=== PATIENT | male | born 1940 | race Caucasian/White ===

== ENCOUNTER → 2023-08-22 15:42 | Outpatient (REF) | payer MEDICARE, OTHER, SELFPAY | LOC: CLAB 15:42 | PROVIDERS: ATTENDING PHYSICIAN Specialist | DX: N39.0 Urinary tract infection, site not specified (principal) | CPT/HCPCS: 87086 ==

== ENCOUNTER 2023-09-19 15:05 | Outpatient (RCR) | payer MEDICARE, OTHER, SELFPAY | END 2023-09-19 23:59 | disposition home or self-care (01) | LOC: RPT 15:05 | PROVIDERS: ATTENDING PHYSICIAN Student in an Organized Health Care Education/Training Program; FAMILY PHYSICIAN Internal Medicine Cardiovascular Disease | DX: M54.51 Vertebrogenic low back pain (principal); Z73.6 Limitation of activities due to disability; R26.2 Difficulty in walking, not elsewhere classified | CPT/HCPCS: 97010; 97110; 97112; 97162 ==

== ENCOUNTER 2023-10-16 14:25 | Outpatient (RCR) | payer MEDICARE, OTHER, SELFPAY | END 2023-10-16 23:59 | disposition home or self-care (01) | LOC: RPT 14:25 | PROVIDERS: ATTENDING PHYSICIAN Student in an Organized Health Care Education/Training Program; FAMILY PHYSICIAN Internal Medicine Cardiovascular Disease | DX: M54.51 Vertebrogenic low back pain (principal); Z73.6 Limitation of activities due to disability | CPT/HCPCS: 97010; 97110; 97112 ==

== ENCOUNTER → 2023-11-04 10:26 | Outpatient (REF) | payer MEDICARE, OTHER, SELFPAY | LOC: HWRAD 10:26 | PROVIDERS: ATTENDING PHYSICIAN Internal Medicine Gastroenterology; FAMILY PHYSICIAN Internal Medicine Cardiovascular Disease | DX: K76.0 Fatty (change of) liver, not elsewhere classified (principal) | CPT/HCPCS: 76700 ==

== ENCOUNTER 2023-11-19 11:16 | Outpatient (RCR) | payer MEDICARE, OTHER, SELFPAY | END 2023-11-19 23:59 | disposition home or self-care (01) | LOC: RPT 11:16 | PROVIDERS: ATTENDING PHYSICIAN Student in an Organized Health Care Education/Training Program; FAMILY PHYSICIAN Internal Medicine Cardiovascular Disease | DX: M54.51 Vertebrogenic low back pain (principal); Z73.6 Limitation of activities due to disability | CPT/HCPCS: 97110; 97112; 97140 ==

== ENCOUNTER → 2023-11-25 07:59 | Outpatient (REF) | payer MEDICARE, OTHER, SELFPAY | LOC: MRI 3T 07:59 | PROVIDERS: ATTENDING PHYSICIAN Psychiatry & Neurology Neurology; FAMILY PHYSICIAN Internal Medicine Cardiovascular Disease | DX: R41.89 Other symptoms and signs involving cognitive functions and awareness (principal) | CPT/HCPCS: 70551 ==

== ENCOUNTER 2023-12-05 10:01 | Outpatient (RCR) | payer MEDICARE, OTHER, SELFPAY | END 2023-12-08 07:31 | disposition home or self-care (01) | LOC: RPT 10:01 | PROVIDERS: ATTENDING PHYSICIAN Student in an Organized Health Care Education/Training Program; FAMILY PHYSICIAN Internal Medicine Cardiovascular Disease | DX: M54.51 Vertebrogenic low back pain (principal); Z73.6 Limitation of activities due to disability | CPT/HCPCS: 97110; 97112 ==

== ENCOUNTER → 2023-12-18 12:11 | Outpatient (REF) | payer MEDICARE, OTHER, SELFPAY ==
[2023-12-18 13:03] LABS: % Basophils 0.5 % (0-2); % Eosinophils 4.6 % (0-6); % Immature Granulocytes 0.7 % (0-0.5); % Lymphocytes 16.2 % (20.5-51.1); % Monocytes 6.5 % (1.7-9.3); % Neutrophils 71.5 % (42.2-75.2); Absolute Eosinophils 0.4 10^3/uL (0-0.7); Absolute Immature Granulocytes 0.1 10^3/uL (0-0.05); Absolute Lymphocytes 1.4 10^3/uL (1.2-3.4); Absolute Monocytes 0.6 10^3/uL (0.1-0.6); Absolute Neutrophils 6.1 10^3/uL (1.4-6.5); Hematocrit 37.7 % (39.0-52.0); Hemoglobin 12.8 g/dL (13.0-18.0); Mean Corpuscular Hgb 29.7 pg (27.0-31.0); Mean Corpuscular Volume 87.5 fL (80.0-94.0); Nucleated Red Blood Cells % 0 % (-); Platelet Count 199 10^3/uL (130-400); Red Blood Cell Count 4.31 10^6/uL (4.70-6.10); Red Cell Dist. Width 13.5 % (11.5-14.5); White Blood Cell Count 8.6 10^3/uL (4.8-10.8)
[2023-12-18 14:02] LABS: Blood Urea Nitrogen 27 mg/dl (9-20); Calcium 9.6 mg/dl (8.4-10.2); Carbon Dioxide 27 mmol/L (22-30); Chloride 103 mmol/L (98-107); Glucose 113 mg/dl (70-99); Potassium 4.9 mmol/L (3.5-5.1); Sodium 143 mmol/L (135-145); eGFR > 60.00
== END ==
LOC: REG 12:11
PROVIDERS: ATTENDING PHYSICIAN Internal Medicine; FAMILY PHYSICIAN Internal Medicine Cardiovascular Disease
DX: I10 Essential (primary) hypertension (principal); Z79.01 Long term (current) use of anticoagulants
CPT/HCPCS: 36415; 80048; 85025

== ENCOUNTER → 2023-12-24 08:03 | Outpatient (REF) | payer MEDICARE, OTHER, SELFPAY | LOC: HWRCS 08:03 | PROVIDERS: ATTENDING PHYSICIAN Internal Medicine; FAMILY PHYSICIAN Internal Medicine Cardiovascular Disease | DX: I48.0 Paroxysmal atrial fibrillation (principal); I10 Essential (primary) hypertension | CPT/HCPCS: 93306 ==

== ENCOUNTER → 2023-12-30 07:25 | Outpatient (REF) | payer MEDICARE, OTHER, SELFPAY | LOC: DHCBC/DCA 07:25 | PROVIDERS: ATTENDING PHYSICIAN Internal Medicine; FAMILY PHYSICIAN Internal Medicine Cardiovascular Disease | DX: I48.0 Paroxysmal atrial fibrillation (principal); I35.1 Nonrheumatic aortic (valve) insufficiency; R55 Syncope and collapse | CPT/HCPCS: 78452; 93017; A9500; J2785 ==

== ENCOUNTER → 2024-04-23 13:58 | Outpatient (REF) | payer MEDICARE, OTHER, SELFPAY | LOC: HWRAD 13:58 | PROVIDERS: ATTENDING PHYSICIAN Internal Medicine Endocrinology, Diabetes & Metabolism; FAMILY PHYSICIAN Internal Medicine Cardiovascular Disease | DX: E04.2 Nontoxic multinodular goiter (principal) | CPT/HCPCS: 76536 ==

== ENCOUNTER → 2024-05-10 07:01 | Outpatient (REF) | payer MEDICARE, OTHER, SELFPAY | LOC: PAVMRI 07:01 | PROVIDERS: ATTENDING PHYSICIAN Psychiatry & Neurology Neurology; FAMILY PHYSICIAN Internal Medicine Cardiovascular Disease | DX: R26.9 Unspecified abnormalities of gait and mobility (principal); M48.02 Spinal stenosis, cervical region | CPT/HCPCS: 72141 ==

== ENCOUNTER → 2024-05-13 07:08 | Outpatient (REF) | payer MEDICARE, OTHER, SELFPAY | LOC: PAVMRI 07:08 | PROVIDERS: ATTENDING PHYSICIAN Internal Medicine Cardiovascular Disease; REFERRING PHYSICIAN Psychiatry & Neurology Neurology | DX: M51.26 Other intervertebral disc displacement, lumbar region (principal); M54.40 Lumbago with sciatica, unspecified side | CPT/HCPCS: 72148 ==

== ENCOUNTER → 2024-05-17 16:02 | Outpatient (REF) | payer MEDICARE, OTHER, SELFPAY | LOC: PAVMRI 16:02 | PROVIDERS: ATTENDING PHYSICIAN Internal Medicine Cardiovascular Disease; REFERRING PHYSICIAN Psychiatry & Neurology Neurology | DX: M17.9 Osteoarthritis of knee, unspecified (principal) | CPT/HCPCS: 73721 ==

== ENCOUNTER → 2024-05-18 13:33 | Outpatient (REF) | payer MEDICARE, OTHER, SELFPAY | LOC: HWRAD 13:33 | PROVIDERS: ATTENDING PHYSICIAN Internal Medicine Cardiovascular Disease | DX: I82.402 Acute embolism and thrombosis of unspecified deep veins of left lower extremity (principal); I82.412 Acute embolism and thrombosis of left femoral vein | CPT/HCPCS: 93971 ==

== ENCOUNTER → 2024-10-12 12:27 | Outpatient (REF) | payer MEDICARE, OTHER, SELFPAY | LOC: SDSPAT 12:27 | PROVIDERS: ATTENDING PHYSICIAN Internal Medicine Cardiovascular Disease; FAMILY PHYSICIAN Internal Medicine Cardiovascular Disease; OTHER PHYSICIAN Internal Medicine | DX: Z95.818 Presence of other cardiac implants and grafts (principal) | CPT/HCPCS: 93005 ==

== ENCOUNTER 2024-10-14 09:07 | Day surgery (SDC) | payer MEDICARE, OTHER, SELFPAY ==
[2024-10-12 13:03] VITALS: BMI 29.6
--- NOTE | 2024-10-13 10:24 | PTCARENOTE ---
Multiple calls made to patient & spouse to clarify med list after patient was seen by PA.
RN updated med list in [facility], by information provided by patient's .
Additional meds added to list since last weeks initial call to collect this information.
had no explanation when asked why she did not provide this information last week.
provided different information regarding med dosages for metformin and was unsure about amlodipine.
RN instructed patient's to bring current medication list to hospital for verification at time of procedure.
[2024-10-14] VITALS (9 sets, daily range): BP systolic 141–171; BP diastolic 79–92; BMI 29.6
[2024-10-14 10:11] LABS: Blood Urea Nitrogen 38 mg/dl (9-20); Calcium 10.2 mg/dl (8.4-10.2); Carbon Dioxide 23 mmol/L (22-30); Chloride 109 mmol/L (98-107); Estimated Creatinine Clearance 46 ml/min; Glucose 134 mg/dl (70-99); Potassium 5.1 mmol/L (3.5-5.1); Sodium 143 mmol/L (135-145); eGFR > 60.00
--- NOTE | 2024-10-14 11:51 | ITS.CL.IMPLP ---
Crt - Implant Loop
Implant Loop
Procedure Report:
Procedure: Extraction of Loop Recorder and re-implantation.
84 yrs old man with now recurrent atrial fibrillation that has IRL placed in 2019, which was later explanted on 08/09/22 and JOT was implanted. He presented today for explant of his out of battery loop and re-implantation
Date of the procedure: 10/14/24
Procedure Physician: Babak Basilio MD [facility]
Indication: Old ILR with depleted battery
Description of the procedure:
Patient was brought to the holding area after informed consent was obtained. The time out was performed immediately before the procedure.
The left parasternal chest area was prepped and draped in sterile fashion with chlorahexidine prep x 3 times. Lidocaine 1% was injected subcutaneously for local anesthesia. The loop recorder was palpated and the location was identified. An incision
was made at the previous insertion location. The blunt dissection was done to identify the location of the ILR. The capsule was cut and the ILR was pulled out of the capsule. Pressure applied and hemostasis achieved.
Re-implantation:
The loop recorder was tunneled and then injected into the subcutaneous tissue. The tunneling tool was removed leaving the loop recorder in place. The dermis was closed with 4-0 Monocryl suture followed by steristrips and a pressure Tegaderm dressing
was placed. There were no immediate complications.
Post procedure, the device was interrogated and showed good detectable P and R waves.
There were no immediate complications.
Explanted device:
[employer]; Jot Dx, Model# [id number]; Serial# [id number].
Implanted: 08/09/22; explanted 10/14/24
Implanted device:
LINQII; Model: LNQ22; Serial #:[id number]
R wave amplitude: 0.7 mV
Final Programming:
��������������� Tachycardia Detection: >162 bpm for 16 beats
��������������� Bradycardia Detection: 30 bpm for 12 beats, Asystole for 5 seconds.
��������������� Atrial fibrillation detection: On with > 10 min duration
Conclusion:
Successful removal of the loop recorder and re-implantation of new loop recorder.
Recommendation:
Routine post-insert loop care.
--- NOTE | 2024-10-14 12:18 | W.PN.UPDATE ---
Update Note
Progress Note Update
Procedure: Extraction of Loop Recorder and re-implantation.
84 yrs old man with now recurrent atrial fibrillation that has IRL placed in 2019, which was later explanted on 08/09/22 and JOT was implanted. He presented today for explant of his out of battery loop and re-implantation
Date of the procedure: 10/14/24
Procedure Physician: Babak Basilio MD [facility]
Indication: Old ILR with depleted battery
Description of the procedure:
Patient was brought to the holding area after informed consent was obtained. The time out was performed immediately before the procedure.
The left parasternal chest area was prepped and draped in sterile fashion with chlorahexidine prep x 3 times. Lidocaine 1% was injected subcutaneously for local anesthesia. The loop recorder was palpated and the location was identified. An incision
was made at the previous insertion location. The blunt dissection was done to identify the location of the ILR. The capsule was cut and the ILR was pulled out of the capsule. Pressure applied and hemostasis achieved.
Re-implantation:
The loop recorder was tunneled and then injected into the subcutaneous tissue. The tunneling tool was removed leaving the loop recorder in place. The dermis was closed with 4-0 Monocryl suture followed by steristrips and a pressure Tegaderm dressing
was placed. There were no immediate complications.
Post procedure, the device was interrogated and showed good detectable P and R waves.
There were no immediate complications.
Explanted device:
[employer]; Jot Dx, Model# [id number]; Serial# [id number].
Implanted: 08/09/22; explanted 10/14/24
Implanted device:
LINQII; Model: LNQ22; Serial #:[id number]
R wave amplitude: 0.7 mV
Final Programming:
��������������� Tachycardia Detection: >162 bpm for 16 beats
��������������� Bradycardia Detection: 30 bpm for 12 beats, Asystole for 5 seconds.
��������������� Atrial fibrillation detection: On with > 10 min duration
Conclusion:
Successful removal of the loop recorder and re-implantation of new loop recorder.
Recommendation:
Routine post-insert loop care.
== END 2024-10-14 13:27 | disposition home or self-care (01) ==
LOC: CATH 09:07
PROVIDERS: ATTENDING PHYSICIAN Internal Medicine Cardiovascular Disease; FAMILY PHYSICIAN Internal Medicine Cardiovascular Disease; OTHER PHYSICIAN Internal Medicine
DX: Z09 Encounter for follow-up examination after completed treatment for conditions other than malignant neoplasm (principal); I48.0 Paroxysmal atrial fibrillation; E11.9 Type 2 diabetes mellitus without complications; E78.5 Hyperlipidemia, unspecified; I10 Essential (primary) hypertension; E66.9 Obesity, unspecified; M48.00 Spinal stenosis, site unspecified; N40.1 Benign prostatic hyperplasia with lower urinary tract symptoms; Z95.5 Presence of coronary angioplasty implant and graft; Z79.899 Other long term (current) drug therapy; Z79.84 Long term (current) use of oral hypoglycemic drugs; Z79.01 Long term (current) use of anticoagulants; R33.8 Other retention of urine
CPT/HCPCS: 33285; 80048; C1764

== ENCOUNTER 2024-11-15 06:31 | Day surgery (SDC) | payer MEDICARE, OTHER, SELFPAY ==
[2024-11-15] VITALS (12 sets, daily range): BP systolic 103–145; BP diastolic 69–87; BMI 29.3
[2024-11-15 07:24] LABS: Glucose - Point of Care 122 mg/dl (70-99)
--- NOTE | 2024-11-15 09:36 | ITS.CL.PACE ---
Publicist - Pacemaker Implant
Pacemaker Implant
Procedure Report:
Conduction system pacing Permanent Pacemaker Placement:
Mr. Salazar is an 84 yrs old man with PAF and syncope with 14 second pause is recommended a PPM and removel of his ILR.
�
Indications:
Sick sinus syndrome with normal conduction system
Date of the Procedure:
11/15/24
Pre-Operative Diagnosis: Sick sinus syndrome
Post-Operative Diagnosis: Sick sinus syndrome
Procedure Performed: Conduction system pacing permanent pacemaker
Performing Physician:
Babak Basilio MD
Anesthesia:
See anesthesia report.
Detailed Description of the Procedure:
The patient was identified using hospital identification and informed consent obtained for the procedure. The risks were explained to the patient and the family including, but not limited to: Bleeding, infection, arrhythmia, stroke,
vascular/cardiac/lung puncture, surgery, pacemaker dependency/device malfunction. All questions were answered.
A surgical pause was performed in accordance with hospital regulations. Anesthesia service provided sedation as reported separately. Antibiotics administered IV for risk of bacterial colonization. After obtaining informed and written consent, the
patient was brought to the electrophysiology laboratory.
The initial rhythm was sinus.
The procedure site was meticulously prepared with surgical scrub and allowed to dry with no pooling. Sterile draping was applied to cover the procedure site. The image intensifier was draped with sterile bag and positioned over the patient.
A surgical pause and time out was performed immediately prior to the procedure with review of her medical history, recent labs, allergies and medications with site of procedure identified and consent noted in the chart. Antibiotics pre operatively
given. All team members concurred.
The left infraclavicular region was prepped and draped in the usual sterile fashion. Local anesthesia was administered subcutaneously using 1% lidocaine / Bupivacaine. The left cephalic vein cutdown was performed with an incision at the
delto-pectoral groove, and vascular sheath was introduced for lead access.
A subcutaneous pocket was created with blunt dissection and use of electrocautery. Hemostasis was excellent.
The guide wire was advanced to the RA and was advanced to the RV. The preformed curved long hemostatic peel away HIS sheath was advanced into the RV cavity. A left bundle pacing wire was advanced into the sheath to the tip with ventricular signals
noted with unipolar manner. The cardiac anatomy was significant rotated.
The HIS location was identified under guidance of the fluoroscopy and the pacing wire signals. The sheath with the pacing lead was moved deeper into the RV cavity on the septum at a more inferior and distal to the HIS signals.
Once adequate signals were noted on the electrograms of the pacing lead in the sheath with W pattern signals on the RV septum, the lead was advanced and clockwise turns were done under fluoroscopic guidance.
The distal coil locking system was engaged at the [employer] pacing lead. The septum was engaged and the lead was paced intermittently after every 2-3 turns. The Impedance of the lead was measured that remained stable around 600 Ohm and the lead was
not able to advance into the septum. The pacing signals from the lead showed nonselective LV pacing, though narrow but not left bundle pacing. This was thought to be due to the entanglement effect of the lead to the septal endocardium. The outer
sheath was cut and the septal lead had significant torque built in that caused a loop. The attempt to remove the loop straighten the loop resulted in dislodgement of the lead. The lead was also noted to have microbreaks in the outer coating. �The
decision was made to remove the lead.
A new lead and sheath were placed and another septal location was identified with adequate signals noted on the pacing leads and good flouroscopic location. There was sheath approximation conformed on CAMEROONIAN view and the pacing lead was advanced with
clockwise turns into the septal location. The septum was successfully engaged. The lead was paced and septal pacing was noted. The sheath was placed again to the septum and the lead was advanced 2-3 turns with pacing with each advancement. The
ventricular capture was monitored throughout and the captures gradually changed from RV pacing to non-selective pacing to LBB pacing with R wave on V1 morphology. �
The long guiding sheath was cut and removed from the RV without change in lead position, impedance, sensing, or capture. The lead was sutured to the underlying pectoralis fascia with 0-silk stitches.
Then the attention was given to atrial lead. Atrial active lead was placed in the RA and into the RAA. There were excellent impedance and thresholds.
The leads were attached to the pulse generator in standard configuration with acceptable sensing and threshold parameters. The pocket was irrigated with antibiotic solution; the pocket was inspected with no active bleeding noted. The device and the
leads were placed in the pocket.
Deep subcutaneous tissues were closed with three layers of 2-0 V loc sutures; and the dermis was reopposed using a running 4-0 VLOC subcuticular suture.
Sponge counts / sharp counts were appropriate.
Procedure End:
The procedure was tolerated well. Aquacel bandaged was applied.
Estimated Blood loss:
5 cc
Specimens Removed:
No cultures and no specimens were obtained. No intraoperative pathology was identified.
Urine output:
None
Packs / Drains/ Tubes:
None
Instrument / Sponge Count Correct:
Yes
Complications of the Procedure:
None
Condition of Patient at Time of Transfer:
Hemodynamically stable with no neurological or vascular compromise.
Device information:�
Generator: [employer]; Model: [id number]; Serial #[id number]
����������� RA pacing lead: [employer]; Model: [id number]; Serial #[id number]
����������� Measured data on the RV lead was sensing of 1.4 mV, impedance of 610 ohms and threshold of 1.0 V at 0.4ms. �
����������� RV LBB pacing lead: [employer]; Model: [id number]; Serial #[id number]
����������� (Implanted and explanted LPA 1231-65 Serial# [id number])
����������� Measured data on the RV lead was sensing of 5.2mV, impedance of 750 ohms and threshold of 1.0 V at 0.4ms�
PROGRAMMING PARAMETERS:�
Evan parameter settings were DDD 60-130 �
����������� Paced AV interval: 200ms
����������� Sensed AV interval: 180 ms.
����������� Rate Adaptive A-V Interval: off
Mode switch ON
�
Summary:
Successful implantation of [employer] MRI compatible dual chamber conduction system pacing permanent pacemaker.
Results/Recommendations:
-Please follow up CXR�
1. Please provide patient with adequate pain control�
Instructions to be given to patient:�
- Please follow up with [facility] at [address] [place] [address] ([phone]) to get your wound checked in 2 weeks of your discharge. Then follow with
- Do not wet incision site until after it is evaluated at cardiology clinic. No baths or showers until then. Sponge baths / showers are OK but dab dry the dressing after it is wet.�
- Allow 'steri strips' to fall off on their own�
- Do not lift left elbow above shoulder, particularly with sudden jerking movements, for 1 month�
- Do not lift anything weighing more than 5 pounds with the left arm for 1 month�
- If you notice any fevers, shortness of breath, lightheadedness, chest pain, or worsening swelling in the wound site, please contact the arrhythmia clinic, contact your technician inventory specialist, or present to the hospital for evaluation.�
Babak Basilio MD
Electrophysiology
--- NOTE | 2024-11-15 10:00 | ITS.CL.IMPLP ---
P[employer] Products Inspector Trimmer - Implant Loop
Implant Loop
Procedure Report:
Procedure: Extraction of Loop Recorder.
Date of the procedure: 11/15/24
Procedure Physician: Babak Basilio MD [facility]
Indication: Old ILR � sinus paus and 14 second asystole and now s/p PPM placement.
Description of the procedure:
Patient was brought to the holding area after informed consent was obtained. The time out was performed immediately before the procedure.
The left parasternal chest area was prepped and draped in sterile fashion with chlorahexidine prep x 3 times. Lidocaine 1% was injected subcutaneously for local anesthesia. The loop recorder was palpated and the location was identified. An incision
was made at the previous insertion location. The blunt dissection was done to identify the location of the ILR. The capsule was cut and the ILR was pulled out of the capsule. The dermis was closed with steristrips and a pressure Tegaderm dressing
was placed.
There were no immediate complications.
Patient can be discharged home.
Explanted device:
[employer]; Jonino Dx, Model# [id number]; Serial# [id number].
Conclusion:
Successful removal of the loop recorder.
[2024-11-15 11:29] LABS: Glucose - Point of Care 110 mg/dl (70-99)
== END 2024-11-15 12:04 | disposition home or self-care (01) ==
LOC: CATH 06:31
PROVIDERS: ATTENDING PHYSICIAN Internal Medicine Cardiovascular Disease; FAMILY PHYSICIAN Internal Medicine Cardiovascular Disease; OTHER PHYSICIAN Internal Medicine
DX: I49.5 Sick sinus syndrome (principal); Z09 Encounter for follow-up examination after completed treatment for conditions other than malignant neoplasm; R55 Syncope and collapse; I45.10 Unspecified right bundle-branch block
CPT/HCPCS: 33285; 33286; 33208; 71045; 82962; 93005; C1769; C1785; C1887; C1892; C1898

== ENCOUNTER → 2025-01-13 16:07 | Outpatient (REF) | payer MEDICARE, OTHER, SELFPAY | LOC: RAD 16:07 | PROVIDERS: ATTENDING PHYSICIAN Internal Medicine; FAMILY PHYSICIAN Internal Medicine Cardiovascular Disease | DX: R60.0 Localized edema (principal) | CPT/HCPCS: 93971 ==

== ENCOUNTER → 2025-01-26 13:37 | Outpatient (REF) | payer MEDICARE, OTHER, SELFPAY | LOC: HWRCS 13:37 | PROVIDERS: ATTENDING PHYSICIAN Internal Medicine | DX: I48.0 Paroxysmal atrial fibrillation (principal); Z95.0 Presence of cardiac pacemaker; R06.09 Other forms of dyspnea; R60.0 Localized edema | CPT/HCPCS: 93306 ==

== ENCOUNTER → 2025-02-25 14:17 | Outpatient (REF) | payer MEDICARE, OTHER, SELFPAY | LOC: RAD 14:17 | PROVIDERS: ATTENDING PHYSICIAN Surgery Vascular Surgery; FAMILY PHYSICIAN Internal Medicine Cardiovascular Disease | DX: M79.89 Other specified soft tissue disorders (principal); I87.2 Venous insufficiency (chronic) (peripheral) | CPT/HCPCS: 74174; 93970; Q9967 ==

== ENCOUNTER → 2025-03-01 13:27 | Outpatient (REF) | payer MEDICARE, OTHER, SELFPAY | LOC: HWRAD 13:27 | PROVIDERS: ATTENDING PHYSICIAN Internal Medicine Cardiovascular Disease | DX: M54.40 Lumbago with sciatica, unspecified side (principal); M51.26 Other intervertebral disc displacement, lumbar region; M54.31 Sciatica, right side | CPT/HCPCS: 72125; 72131 ==